=== PATIENT | female | born 1985 ===

== ENCOUNTER 2016-10-26 16:41 | Outpatient (CLI) | payer OTHER ==
[~2016-10-26] VITALS: Ht 165.1 cm; Wt 96.0 kg
[2016-10-26 19:10] VITALS: Ht 165.1 cm; Wt 96.0 kg
== END 2016-10-26 19:20 | disposition home or self-care (01) ==
LOC: C.LD 16:41 → C.OPB 16:41
PROVIDERS: ATTEND Obstetrics & Gynecology
DX: O26.893 Other specified pregnancy related conditions, third trimester (principal); Z3A.39 39 weeks gestation of pregnancy

== ENCOUNTER 2021-02-13 07:14 | Inpatient (IN) ==
[2021-02-13] MEDS ORDERED: SODIUM CHLORIDE 0.9% 250 ML IV PRN (09:20)
[2021-02-13] MEDS ORDERED: DEXTROSE 50% 50 ML SYRINGE IV PRN ×2 (10:30→10:38)
[2021-02-13] MEDS ORDERED: OXYTOCIN 30 UNITS/500 ML BAG IV PRN ×2 (10:30→19:31)
[2021-02-13] MEDS ORDERED: INSULIN REGULAR 250 UNITS in SODIUM CHLORIDE 0.9% 247.5 ML IV PRN ×2 (10:30→10:38)
[2021-02-13] MEDS ORDERED: SODIUM CHLORIDE 0.9% 1000ML 1,000 ML IV PRN ×2 (10:30→10:38)
[2021-02-13] MEDS ORDERED: DEXTROSE 5% 1,000 ML IV PRN ×2 (10:30→10:38)
[2021-02-13] MEDS ORDERED: PENICILLIN G POTASSIUM 6 MU in DEXTROSE 5% 250 ML IV STA (10:30)
[2021-02-13 10:56] LABS: Hematocrit (blood only) 30.5 % (37-47); Hemoglobin 9.5 g/dL (12.0-16.0); Mean Corpuscular Hemoglobin 25.5 pg (25-34); Mean Corpuscular Hgb Conc 31.1 g/dL (32-36); Mean Corpuscular Volume 81.8 fL (80-100); Mean Platelet Volume 8.3 fL (7.4-10.4); Platelet Count 198 K/uL (130-400); RDW Coefficient of Variation 16.8 % (11.5-14.5); RDW Standard Deviation 49.4 fL (36.4-46.3); Red Blood Count 3.73 M/uL (4.2-5.4); White Blood Count 6.67 K/uL (4.8-10.8)
[2021-02-13] MEDS: miSOPROStoL 50 MCG TAB PO SCH ×2 (13:26→17:54)
--- NOTE | 2021-02-13 13:44 | History & Physical Report ---
Date of Service February 13, 2021 Assessment & Plan (1) Hypothyroid: (2) Hepatitis C: (3) Gestational diabetes: Plan: Patient is a 35-year-old -2-1-6 at 39 weeks of gestation with gestational diabetes, on insulin, scheduled for induction of labor at term, Vital signs stable afebrile, heart rate reassuring, GBS positive, History of genital herpes, on Valtrex and no lesions and desires to trial of vaginal and declined , Cervix unfavorable, Plan to admit, feed before induction, cervical ripening with oral Cytotec and penicillin. Fingersticks and insulin management during active labor, Continue to monitor closely (4) Genital herpes: (5) Asthma: (6) Anxiety: (7) Spon w/ hemorr-complete: (8) No significant past surgical history: (9) Intrahepatic cholestasis of : Admission and Anticipated Discharge Date Admission Date: February 13, 2021 History of Present Illness Primary Care Provider: Huseyin Terrazas MD Patient is a 35-year-old -2-1-6 at 39 weeks of gestation who was scheduled for induction of labor for gestational diabetes and on insulin. Patient has no complaints. She denies contractions, leakage of fluid, vaginal bleeding, fever chills, headaches, change in her vision nor abdominal pain. She reports good movements. Her has been complicated by, 1) gestational diabetes on insulin, fingersticks have been elevated and insulin dose has been increased to 90 U/ day 2) class III obesity, 3) hypothyroidism, on levothyroxine, 4. History of HSV infection, on Valtrex since 36 weeks. Per patient she had an outbreak about 2 months ago. Self diagnosed by small blisters. She used higher dose of Valtrex at that time but has not have an exam nor culture to confirm. She denies any symptoms now, denies itching, burning, lesions no blisters. Her speculum exam is normal, negative. I discussed the possibility of shedding virus even with no lesions and possible transfer to infant and risk of infection/viremia. We discussed option of vaginal delivery versus section and risks and benefits of each. After long discussion patient decided to try vaginal . 5. Anxiety during , she was on medical marijuana and advised to stop during early and she stopped. 6. 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 7. History of delivery in 2019 and induced at 36 weeks in 2018 for ICP. 8. Mild asthma, 9. Rh-, 10. History of cholestasis during in 2018, 11. Family history of chromosomal abnormality, daughter with 13 q. deletion and agenesis of corpus callosum, 12. Antepartum anemia, hemoglobin was 8.7 at new OB visit and started on iron with vitamin C. 12. GBS+ Allergies Allergy/AdvReac Type Severity Reaction Status Date / Time banana Allergy Intermediate GI SYMPTOMS Verified 01/25/20 14:41 Home Medications Medication Instructions Recorded Confirmed Type albuterol sulfate 90 mcg/actuation 2 puff INHALATION Q6H PRN 09/25/19 02/13/21 History aerosol inhaler levothyroxine 50 mcg tablet 125 mcg PO QAM 09/25/19 02/13/21 History Medical Marijuana 10 mg PO QAM 01/25/20 02/13/21 History ferrous sulfate 325 mg (65 mg 325 mg PO BID #60 tab 01/25/20 02/13/21 Rx iron) tablet insulin glargine 100 unit/mL (3 90 unit SUBCUT PM 02/13/21 02/13/21 History mL) subcutaneous pen (Lantus Solostar U-100 Insulin) vits no.124-ferrous fum 1 tab PO DAILY 02/13/21 02/13/21 History 27 mg iron-folic acid 800 mcg tablet ( Vitamin) valacyclovir 500 mg tablet 500 mg PO BID 02/13/21 02/13/21 History (Valtrex) Patient History Medical History (Updated 02/13/21 @ 13:42 by Teodora Colbert MD) Anxiety Medical marijuana card - Smokes in wax form - Hasn't used in about 3 weeks. Asthma Albuterol Foot fracture, left Genital herpes Last outbreak 1 month ago - Valtrex since 36 weeks. 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 Hypothyroid Synthroid 125mcg daily Intrahepatic cholestasis of last - Induced at 36 weeks Surgical History No significant past surgical history S/P foot surgery, right As a teenager Family History Other No known health problems Social History Smoking Status: Former smoker Tobacco Type: Cigarettes Hx Alcohol Use: No Hx Substance Use: Yes Prescribed Medications: Marijuana Prescribed Medications Comment: Medical marijuana Last Used Substance Other:: 1 month ago - Smoked form Preferred Language: Sudanese Communication Ability: Effective Special Education Director Required: No Beliefs That Will Affect Care: None marital status: marital status details: Chepe Ortiz Current Living Situation: Spouse Current Living Situation Comment: Lives with and two children. 4 children live with patient's mom current occupational status: employed current occupation: Homemaker Other Information That Helps Us Care for You: No Feels Safe at Home: Yes Safety Concerns: Feels Safe At This Time Childhood Exposure to Second-Hand Smoke: Yes Assistive Devices: None OB History 4 term spontaneous vaginal deliveries and two deliveries at 36 weeks, see office records for details Review of Systems as per Subjective / HPI Physical Exam Constitutional: WD/WN, vitals as above Gastrointestinal (Abdomen): normal bowel sounds, soft, nontender, no hepatosplenomegaly Genitourinary: normal external appearance (No signs or symptoms of) Speculum/Bimanual Exam: normal appearance of the vagina and normal appearance of the cervix (No signs or symptoms of herpes) OB Exam Abdomen: + vertex Manual OB Exam: + cervical dilation 1 cm, + cervical effacement 20% and + station high OB Exam Monitor Tracing: + external uterine monitor used and + category I Results & Data ([place]) Vital Signs (Past 12 Hours) Vital Signs Temp Pulse Resp BP 02/13/21 11:54 36.8 C 98 H 20 102/58 L 02/13/21 07:37 36.7 C 20 02/13/21 07:25 96 H 115/71 Laboratory Results Lab Results 02/13/21 02/13/21 02/13/21 Range/Units 08:29 09:36 09:39 WBC 6.67 (4.8-10.8) K/uL RBC 3.73 L (4.2-5.4) M/uL Hgb 9.5 L (12.0-16.0) g/dL Hct 30.5 L (37-47) % MCV 81.8 (80-100) fL MCH 25.5 (25-34) pg MCHC 31.1 L (32-36) g/dL RDW Std Deviation 49.4 H (36.4-46.3) fL RDW Coeff of Marcin 16.8 H (11.5-14.5) % Plt Count 198 (130-400) K/uL MPV 8.3 (7.4-10.4) fL POC Glucose 90 (70-99) mg/dl Blood Type A Negative Antibody Screen NEGATIVE Crossmatch See Detail Covid testing was done in office on February 09 and it was negative, GBS is positive (1) Gestational diabetes Gestational diabetes mellitus control: insulin-controlled Trimester: third trimester Qualified Code(s): O24.414 - Gestational diabetes mellitus in , insulin controlled
[2021-02-13] MEDS: LACTATED RINGER'S 1,000 ML IV PRN ×3 (14:05→19:53)
--- NOTE | 2021-02-13 15:02 | Obstetrical Progress Note ---
Date of Service February 13, 2021 Assessment & Plan Admission and Anticipated Discharge Date Admission Date: February 13, 2021 Subjective Patient is reevaluated. She ate lunch and then first dose of Cytotec was given at 1320 p.m. She started to have contractions about 20 minutes later. There were mild and now they are getting more painful. She rates the pain 6 out of 10. She denies pain medication or epidural. heart rate category 1, contractions every 2 to 3 minutes. First dose of penicillin is being given now. Continue to monitor closely. Results & Data ([facility]) Vital Signs (Past 12 Hours) Vital Signs Temp Pulse Resp BP 02/13/21 14:25 36.6 C 86 18 112/65 02/13/21 11:54 36.8 C 98 H 20 102/58 L 02/13/21 07:37 36.7 C 20 02/13/21 07:25 96 H 115/71
--- NOTE | 2021-02-13 17:19 | Obstetrical Progress Note ---
Date of Service February 13, 2021 Assessment & Plan Admission and Anticipated Discharge Date Admission Date: February 13, 2021 Subjective Patient is reevaluated. It has been 4 hours since she had Cytotec. Still having regular contractions but less painful than before. Cervix is 3 cm dilated, 50% effaced and head at -2 station. heart rate category 1, toco contractions every 1 to 3 minutes. Continue to monitor closely and plan to AROM after second dose of penicillin. Results & Data ([facility]) Vital Signs (Past 12 Hours) Vital Signs Temp Pulse Resp BP 02/13/21 14:25 36.6 C 86 18 112/65 02/13/21 11:54 36.8 C 98 H 20 102/58 L 02/13/21 07:37 36.7 C 20 02/13/21 07:25 96 H 115/71
[2021-02-13] MEDS: PENICILLIN G POTASSIUM 3 MU in DEXTROSE 5% 100 ML IV PRN ×2 (17:53→21:59)
--- NOTE | 2021-02-13 18:29 | Obstetrical Progress Note ---
Date of Service February 13, 2021 Assessment & Plan Admission and Anticipated Discharge Date Admission Date: February 13, 2021 Subjective Patient is reevaluated 2nd PCN is being infused. VE; 3-4 cm/ 50%/ -2, AROM, clear fluid FHR categ I [place] ctxs q 2-4 min Continue to monitor closely Results & Data ([facility]) Vital Signs (Past 12 Hours) Vital Signs Temp Pulse Resp BP 02/13/21 14:25 36.6 C 86 18 112/65 02/13/21 11:54 36.8 C 98 H 20 102/58 L 02/13/21 07:37 36.7 C 20 02/13/21 07:25 96 H 115/71
[2021-02-13] MEDS ORDERED: fentaNYL citrate 100 MCG/2 ML VIAL ONE ×2 (18:44→23:13)
[2021-02-13] MEDS ORDERED: SODIUM CHLORIDE 0.9% INJ 10 ML VIAL ONE ×2 (18:44→23:12)
[2021-02-13] MEDS ORDERED: BUPIVACAINE 0.25% 30 ML VIAL ONE ×3 (18:44→23:13)
[2021-02-13] MEDS ORDERED: ePHEDrine sulfate 50 MG/ML AMP ONE (18:44)
[2021-02-13] MEDS ORDERED: fentaNYL 2MCG/ML ROPIVACAINE 1.25MG/ML 100 ML BAG EPI ONE (18:45)
[2021-02-13] MEDS ORDERED: NALBUPHINE HCL INJ 10 MG/ML AMP IV PRN (19:00)
[2021-02-13] MEDS ORDERED: ONDANSETRON INJ 2 MG/ML 2 ML VIAL IV PRN (19:00)
[2021-02-13] MEDS ORDERED: ePHEDrine sulfate 50 MG/ML AMP IV PRN (19:00)
[2021-02-13] MEDS ORDERED: diphenhydrAMINE 50 MG/ML VIAL IV PRN (19:00)
[2021-02-13] MEDS ORDERED: fentaNYL 2MCG/ML ROPIVACAINE 1.25MG/ML 100 ML BAG EPI PRN (19:00)
[2021-02-13] MEDS ORDERED: NALOXONE HCL 1 MG in SODIUM CHLORIDE 0.9% 1000ML 1,000 ML IV PRN (19:00)
[2021-02-13] MEDS ORDERED: NALOXONE HCL 0.4 MG/1 ML VIAL/CARP IV PRN (19:00)
--- NOTE | 2021-02-13 19:02 | Anesthesiology Consultation ---
Date of Service February 13, 2021 Assessment & Plan (1) Encounter for pre-operative examination: Chart Review Chart Review: Patient NOT seen in Pre Admission Testing and Acceptable Risk for Labor Epidural Consults Requested none History Height/Weight Height: 5 ft 4 in Weight: 117.027 kg Allergies Allergy/AdvReac Type Severity Reaction Status Date / Time banana Allergy Intermediate GI SYMPTOMS Verified 01/25/20 14:41 Medications Home Medications Medication Instructions Recorded Confirmed Last Taken albuterol sulfate 90 mcg/actuation 2 puff INHALATION Q6H PRN 09/25/19 02/13/21 Unknown aerosol inhaler levothyroxine 50 mcg tablet 125 mcg PO QAM 09/25/19 02/13/21 02/13/21 Medical Marijuana 10 mg PO QAM 01/25/20 02/13/21 01/14/21 ferrous sulfate 325 mg (65 mg 325 mg PO BID #60 tab 01/25/20 02/13/21 02/12/21 iron) tablet insulin glargine 100 unit/mL (3 90 unit SUBCUT PM 02/13/21 02/13/21 02/12/21 mL) subcutaneous pen (Lantus Solostar U-100 Insulin) vits no.124-ferrous fum 1 tab PO DAILY 02/13/21 02/13/21 02/12/21 27 mg iron-folic acid 800 mcg tablet ( Vitamin) valacyclovir 500 mg tablet 500 mg PO BID 02/13/21 02/13/21 02/13/21 (Valtrex) Active Medications Generic Name Dose Route Start Last Admin Trade Name Freq PRN Reason Stop Dose Admin Lactated Ringer's 1,000 mls @ 150 mls/hr 02/13/21 10:30 02/13/21 18:34 Lr IV 02/15/21 10:29 999 mls/hr .Q6H40M PRN Infusion L&D Protocol Protocol Penicillin G Potassium 3 mu/ 106 mls @ 100 mls/hr 02/13/21 13:31 02/13/21 17:53 Dextrose IV 02/23/21 13:30 100 mls/hr Q4H PRN Administration GBS(+) Until Delivery Misoprostol 50 mcg 02/13/21 12:00 02/13/21 17:54 Misoprostol 50 Mcg Tab PO 03/15/21 11:59 Not Given Q4 GRACE Past Medical History Medical History (Updated 02/13/21 @ 19:02 by Hector Liz MD) Anemia Anxiety Medical marijuana card - Smokes in wax form - Hasn't used in about 3 weeks. Asthma Albuterol Encounter for pre-operative examination Foot fracture, left Genital herpes Last outbreak 1 month ago - Valtrex since 36 weeks. 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 Hypothyroid Synthroid 125mcg daily Intrahepatic cholestasis of last - Induced at 36 weeks Exercise / Class Metabolic Activity II 4-5 Yardwork/Stairs/Walk up hill Past Family History Family History Other No known health problems Past Surgical History Surgical History No significant past surgical history S/P foot surgery, right As a teenager Past Anesthesia History No Hx of Anesthesia Complications and No Family Hx of Anesthesia Complications History of PONV No Hx of PONV and No Hx of Motion Sickness Social History Smoking Status: Former smoker Hx Alcohol Use: No Hx Substance Use: Yes substance use type: marijuana Last Used Substance Other:: 1 month ago - Smoked form Physical Exam Vital Signs Last Vital Signs Temp 36.6 C 02/13/21 14:25 Pulse 94 H 02/13/21 19:23 Resp 18 02/13/21 14:25 BP 110/71 02/13/21 19:23 Pulse Ox 95 02/13/21 19:22 Testing Laboratory Results 02/13/21 09:39 Blood Type A Negative 02/13/21 09:36 Antibody Screen NEGATIVE 02/13/21 09:36 02/13/21 02/13/21 02/13/21 17:58 16:12 14:11 POC Glucose 81 85 85 02/13/21 08:29 POC Glucose 90
[2021-02-13] MEDS ORDERED: MINERAL OIL 30 ML UDC ONE (19:45)
--- NOTE | 2021-02-13 21:10 | Obstetrical Progress Note ---
Date of Service February 13, 2021 Assessment & Plan Admission and Anticipated Discharge Date Admission Date: February 13, 2021 Subjective Patient is reevaluated, comfortable VE; unchanged since AROM FHR categ I [place] unable to monitor ctxs due to her being on charu side Plan to start Oxytocin per protocol and continue to monitor closely Results & Data ([facility]) Vital Signs (Past 12 Hours) Vital Signs Temp Pulse Resp BP Pulse Ox 02/13/21 21:07 82 98 02/13/21 21:02 75 94 02/13/21 21:01 81 94 02/13/21 21:00 88 97/53 L 02/13/21 20:57 77 92 02/13/21 20:52 78 94 02/13/21 20:47 73 94 02/13/21 20:46 79 94 02/13/21 20:45 73 96/55 L 02/13/21 20:42 78 93 02/13/21 20:41 87 92 02/13/21 20:37 74 93 02/13/21 20:35 80 94 02/13/21 20:32 77 93 02/13/21 20:30 80 20 93/55 L 02/13/21 20:27 83 95 02/13/21 20:22 81 94 02/13/21 20:17 79 93 02/13/21 20:15 91 H 90/55 L 94 02/13/21 20:12 86 96 02/13/21 20:10 81 91/53 L 94 02/13/21 20:07 89 97 02/13/21 20:05 76 90/52 L 02/13/21 20:02 83 97 02/13/21 20:00 85 18 88/54 L 02/13/21 19:57 74 96 02/13/21 19:55 81 84/53 L 02/13/21 19:52 69 97 02/13/21 19:50 78 80/49 L 02/13/21 19:48 74 90/54 L 02/13/21 19:47 72 96 02/13/21 19:46 76 85/50 L 02/13/21 19:45 20 02/13/21 19:42 71 88/50 L 96 02/13/21 19:40 18 02/13/21 19:37 91 H 96 02/13/21 19:36 79 94 02/13/21 19:35 78 18 101/57 L 02/13/21 19:33 75 104/60 02/13/21 19:32 75 96 02/13/21 19:31 82 107/64 02/13/21 19:30 18 02/13/21 19:29 79 107/65 02/13/21 19:27 83 109/67 97 02/13/21 19:25 80 18 108/68 02/13/21 19:23 94 H 110/71 02/13/21 19:22 84 18 95 02/13/21 19:21 86 111/65 02/13/21 19:20 18 02/13/21 19:17 82 96 02/13/21 19:12 78 97 02/13/21 19:08 36.8 C 02/13/21 19:06 85 119/76 02/13/21 14:25 36.6 C 86 18 112/65 02/13/21 11:54 36.8 C 98 H 20 102/58 L
--- NOTE | 2021-02-13 23:13 | Communication Note ---
Date of Service: February 13, 2021 patient with increasing pain, front midline abdomen. bolused 5ml 0.25% bupivicaine followed by 5ml 2% lidocaine in divided doses. minimal improvement. vss. pt on monitor
--- NOTE | 2021-02-13 23:46 | Communication Note ---
Date of Service: February 13, 2021 Called by RN for increasing pain. Epidural had been placed and had been redosed earlier. She is willing to replace the epidural catheter. I did remove the previous catheter, tip in tact. Area prepped with betadine. Epidural placed one interspinous level higher, Loss of resistance @6cm, catheter secured at 10cm. Negative aspiration, negative test dose. Catheter bolused with 12cc of 0.125% bupivicane, PCEA pump restarted at previous settings. Patient had good pain relief. I reported this to the condominium property manager anesthesiologist.
--- NOTE | 2021-02-13 23:48 | Obstetrical Progress Note ---
Date of Service February 13, 2021 Assessment & Plan Admission and Anticipated Discharge Date Admission Date: February 13, 2021 Subjective Patient became uncomfortable and received second epidural. Vital signs stable afebrile, heart rate category 1, [place] is showing contractions every 2 to 3 minutes, Pitocin is at 8 milliunits/min, Cervix is 4-5 cm dilated 70% effaced head at -2 station and cone-shaped. We will continue to monitor closely Results & Data ([facility]) Vital Signs (Past 12 Hours) Vital Signs Temp Pulse Resp BP Pulse Ox 02/13/21 23:44 71 109/61 02/13/21 23:42 79 110/65 99 02/13/21 23:40 79 20 109/63 02/13/21 23:38 116 H 132/62 91 02/13/21 23:37 105 H 100 02/13/21 23:32 123 H 97 02/13/21 23:30 22 02/13/21 23:27 74 96 02/13/21 23:23 81 131/73 02/13/21 23:22 89 96 02/13/21 23:17 80 99 02/13/21 23:12 80 97 02/13/21 23:07 71 120/66 99 02/13/21 23:05 79 123/71 02/13/21 23:03 87 123/68 02/13/21 23:02 86 99 02/13/21 23:01 68 117/75 02/13/21 23:00 18 02/13/21 22:59 70 115/71 02/13/21 22:57 86 115/72 97 02/13/21 22:55 73 112/69 02/13/21 22:53 77 124/72 02/13/21 22:52 72 99 02/13/21 22:51 83 122/64 02/13/21 22:50 80 90 02/13/21 22:49 68 114/65 02/13/21 22:47 79 115/66 97 02/13/21 22:45 67 115/69 02/13/21 22:43 67 124/76 02/13/21 22:42 71 99 02/13/21 22:41 70 122/71 02/13/21 22:39 71 123/70 02/13/21 22:37 78 110/66 100 02/13/21 22:35 61 108/67 02/13/21 22:33 76 118/74 02/13/21 22:32 71 100 02/13/21 22:31 77 116/70 02/13/21 22:30 20 02/13/21 22:29 71 112/66 02/13/21 22:27 74 113/67 100 02/13/21 22:25 67 112/64 02/13/21 22:23 73 106/65 02/13/21 22:22 73 100 02/13/21 22:17 72 100 02/13/21 22:15 81 114/68 02/13/21 22:12 72 100 02/13/21 22:07 76 99 02/13/21 22:02 76 100 02/13/21 22:01 18 02/13/21 22:00 70 110/68 02/13/21 21:57 85 100 02/13/21 21:52 73 98 02/13/21 21:47 75 100 02/13/21 21:45 83 111/65 02/13/21 21:42 75 99 02/13/21 21:37 76 100 02/13/21 21:32 76 99 02/13/21 21:30 73 18 107/63 02/13/21 21:27 72 97 02/13/21 21:22 75 97 02/13/21 21:17 74 98 02/13/21 21:16 82 109/65 02/13/21 21:12 83 97 02/13/21 21:07 82 98 02/13/21 21:02 36.6 C 75 94 02/13/21 21:01 81 94 02/13/21 21:00 88 97/53 L 02/13/21 20:59 18 02/13/21 20:57 77 92 21 20:52 78 94 21 20:47 73 94 21 20:46 79 94 21 20:45 73 96/55 L 02/13/21 20:42 78 93 21 20:41 87 92 02/13/21 20:37 74 93 02/13/21 20:35 80 94 21 20:32 77 93 21 20:30 80 20 93/55 L 02/13/21 20:27 83 95 12/21/21 20:22 81 94 02/13/21 20:17 79 93 02/13/21 20:15 91 H 90/55 L 94 02/13/21 20:12 86 96 02/13/21 20:10 81 91/53 L 94 02/13/21 20:07 89 97 02/13/21 20:05 76 90/52 L 02/13/21 20:02 83 97 02/13/21 20:00 85 18 88/54 L 02/13/21 19:57 74 96 02/13/21 19:55 81 84/53 L 02/13/21 19:52 69 97 02/13/21 19:50 78 80/49 L 02/13/21 19:48 74 90/54 L 02/13/21 19:47 72 96 02/13/21 19:46 76 85/50 L 02/13/21 19:45 20 02/13/21 19:42 71 88/50 L 96 02/13/21 19:40 18 02/13/21 19:37 91 H 96 02/13/21 19:36 79 94 02/13/21 19:35 78 18 101/57 L 02/13/21 19:33 75 104/60 02/13/21 19:32 75 96 02/13/21 19:31 82 107/64 02/13/21 19:30 18 02/13/21 19:29 79 107/65 02/13/21 19:27 83 109/67 97 02/13/21 19:25 80 18 108/68 02/13/21 19:23 94 H 110/71 02/13/21 19:22 84 18 95 02/13/21 19:21 86 111/65 02/13/21 19:20 18 02/13/21 19:17 82 96 02/13/21 19:12 78 97 02/13/21 19:08 36.8 C 02/13/21 19:06 85 119/76 02/13/21 14:25 36.6 C 86 18 112/65 02/13/21 11:54 36.8 C 98 H 20 102/58 L
[2021-02-14] MEDS ORDERED: MEASLES, MUMPS & RUBELLA VIRUS VIAL SQ ONE (00:57)
[2021-02-14] MEDS ORDERED: OXYTOCIN 30 UNITS/500 ML BAG IV PRN (00:57)
[2021-02-14] MEDS ORDERED: BENZOCAINE 20% AER SPR 82.5 GM CAN EXT PRN (00:57)
[2021-02-14] MEDS ORDERED: DIPHTHERIA/TETANUS/PERTUSSIS 0.5 ML SYR/VIAL IM ONE (00:57)
[2021-02-14] MEDS ORDERED: HYDROCORTISONE ACETATE 25 MG SUPP PR PRN (00:57)
[2021-02-14] MEDS ORDERED: SUPERCREAM 0.870% 15 GM JAR EXT PRN (00:57)
[2021-02-14] MEDS ORDERED: bisacodyL 10 MG SUPP PR PRN (00:57)
[2021-02-14] MEDS ORDERED: ACETAMINOPHEN 325 MG TAB PO PRN (00:57)
--- NOTE | 2021-02-14 01:02 | Delivery Summary ---
Vaginal Delivery Summary Date of Service February 14, 2021 Vaginal Delivery Summary Patient was found to be fully dilated and desire to push. The head was visible at the genital hiatus. With 1 push the head was delivered without difficulty there was a nuchal cord around the neck x1 which was reduced I was unable to deliver the shoulders with minimal traction. Patient legs were hyperflexed and then suprapubic pressure was applied and then I was able to deliver posterior/right arm without difficulty and then anterior/ left shoulder and arm was delivered with minimal traction and then the baby was handed off to the mother. The mouth and nose were suctioned and the cord was clamped x2 and cut. Baby was handed to the waiting pediatric team. The cord blood was obtained. The perineum and labia were checked for lacerations and they were intact. The placenta was found to be in the vagina, delivered spontaneously as intact and complete. Uterus was explored and found to be empty. Fundus was firm and EBL was 100 mL. Mom and baby tolerated procedure well. The sponge needle instrument counts was correct x2. Baby was a viable male infant Apgars 8/9 and weight is pending. No complications happened other than mild shoulder dystocia and I was present during whole procedure.
[2021-02-14] MEDS ORDERED: ALBUTEROL HFA 8 GM INHALER INH PRN (01:05)
[2021-02-14] MEDS ORDERED: IBUPROFEN 600 MG TAB PO ONE (02:45)
[2021-02-14] MEDS: LEVOTHYROXINE SODIUM 125 MCG TABLET PO SCH (06:39)
[2021-02-14] MEDS: PRENATAL VITAMIN 1 TAB PO SCH (07:40)
[2021-02-14] MEDS: DOCUSATE SODIUM 100 MG CAP PO SCH ×2 (07:40→21:28)
[2021-02-14] MEDS: IBUPROFEN 600 MG TAB PO PRN ×3 (07:40→21:28)
[2021-02-14] MEDS ORDERED: FERROUS SULFATE 325 MG TAB PO SCH (08:00)
[2021-02-14] MEDS ORDERED: PRENATAL VITAMIN 1 TAB PO SCH (09:00)
[2021-02-14] MEDS: FERROUS SULFATE 325 MG TAB PO SCH ×2 (09:42→23:40)
--- NOTE | 2021-02-14 09:56 | Anesthesia Procedure Note ---
Date of Service February 14, 2021 Anesthesia Post Epidural Note Vital Signs Vital Signs: Temp Pulse Resp BP Pulse Ox 36.6 C 89 16 119/80 98 02/14/21 07:30 02/14/21 07:30 02/14/21 07:30 02/14/21 07:30 02/14/21 07:30 Pain Intensity Bilateral Abdomen: Pain Intensity: 1 Perineal: Pain Intensity: 1 Notes Mental Status: alert / awake / arousable and participated in evaluation Nausea / Vomiting: adequately controlled Pain: adequately controlled Airway Patency, RR, SpO2: stable & adequate BP & HR: stable & adequate Hydration State: stable & adequate Neuraxial Anesthesia: was administered and sensory block is resolving Anesthetic Complications: no major complications apparent Epidural: Removed without complications and With tip intact
[2021-02-15] MEDS: IBUPROFEN 600 MG TAB PO PRN (03:07)
[2021-02-15] MEDS: LEVOTHYROXINE SODIUM 125 MCG TABLET PO SCH (06:16)
[2021-02-15] MEDS: PRENATAL VITAMIN 1 TAB PO SCH (07:35)
[2021-02-15] MEDS: FERROUS SULFATE 325 MG TAB PO SCH (07:35)
[2021-02-15] MEDS: DOCUSATE SODIUM 100 MG CAP PO SCH (07:35)
--- NOTE | 2021-02-15 07:44 | Obstetrical Progress Note ---
Date of Service February 15, 2021 Assessment & Plan Admission and Anticipated Discharge Date Admission Date: February 13, 2021 Subjective Patient is seen and examined. She feels well, no complaints. Ambulating without dizziness Voiding without difficulty Tolerating regular diet with out N&V Bleeding is minimal No fever/ chills/ CP/ SOB/ N&V/ Leg pain Bottle feeding without problems Vital Signs Temp Pulse Pulse Resp BP BP Pulse Ox 02/14/21 23:15 36.7 C 76 16 125/80 96 02/14/21 19:45 36.8 C 85 16 115/77 94 02/14/21 16:20 36.7 C 80 16 132/84 96 02/14/21 11:30 36.9 C 80 16 123/77 97 02/14/21 11:19 36.9 C 80 16 123/77 97 02/14/21 11:10 37 C 83 16 104/68 97 Lab Results 02/13/21 02/13/21 02/13/21 Range/Units 08:29 09:36 09:39 WBC 6.67 (4.8-10.8) K/uL RBC 3.73 L (4.2-5.4) M/uL Hgb 9.5 L (12.0-16.0) g/dL Hct 30.5 L (37-47) % MCV 81.8 (80-100) fL MCH 25.5 (25-34) pg MCHC 31.1 L (32-36) g/dL RDW Std Deviation 49.4 H (36.4-46.3) fL RDW Coeff of Marcin 16.8 H (11.5-14.5) % Plt Count 198 (130-400) K/uL MPV 8.3 (7.4-10.4) fL POC Glucose 90 (70-99) mg/dl Blood Type A Negative Antibody Screen NEGATIVE Screen (Negative) Crossmatch See Detail 02/13/21 02/13/21 02/13/21 Range/Units 14:11 16:12 17:58 WBC (4.8-10.8) K/uL RBC (4.2-5.4) M/uL Hgb (12.0-16.0) g/dL Hct (37-47) % MCV (80-100) fL MCH (25-34) pg MCHC (32-36) g/dL RDW Std Deviation (36.4-46.3) fL RDW Coeff of Marcin (11.5-14.5) % Plt Count (130-400) K/uL MPV (7.4-10.4) fL POC Glucose 85 85 81 (70-99) mg/dl Blood Type Antibody Screen Screen (Negative) Crossmatch 02/13/21 02/13/21 02/13/21 Range/Units 19:55 22:03 23:56 WBC (4.8-10.8) K/uL RBC (4.2-5.4) M/uL Hgb (12.0-16.0) g/dL Hct (37-47) % MCV (80-100) fL MCH (25-34) pg MCHC (32-36) g/dL RDW Std Deviation (36.4-46.3) fL RDW Coeff of Marcin (11.5-14.5) % Plt Count (130-400) K/uL MPV (7.4-10.4) fL POC Glucose 85 71 89 (70-99) mg/dl Blood Type Antibody Screen Screen (Negative) Crossmatch 02/14/21 Range/Units 06:32 WBC (4.8-10.8) K/uL RBC (4.2-5.4) M/uL Hgb (12.0-16.0) g/dL Hct (37-47) % MCV (80-100) fL MCH (25-34) pg MCHC (32-36) g/dL RDW Std Deviation (36.4-46.3) fL RDW Coeff of Marcin (11.5-14.5) % Plt Count (130-400) K/uL MPV (7.4-10.4) fL POC Glucose (70-99) mg/dl Blood Type A Negative Antibody Screen Cancelled Screen Negative (Negative) Crossmatch PE: General: Alert, orientedx3, NAD Abd: soft, NT, fundus firm, below Umbilicus Perineum intact, Lochia rubra minimal Ext; NT, no edema AP: 35 yo s/p , ppd# 1 VSS Afebrile doing well Continue routine care Desires d/c today All questions were answered Discussed when to call D/C home , f.u in office f/u OGT for GDM Results & Data ([facility]) Vital Signs (Past 12 Hours) Vital Signs Temp Pulse Resp BP Pulse Ox 02/14/21 23:15 36.7 C 76 16 125/80 96 02/14/21 19:45 36.8 C 85 16 115/77 94
[2021-02-15 07:51] LABS: Hematocrit (blood only) 27.4 % (37-47); Hemoglobin 8.4 g/dL (12.0-16.0); Mean Corpuscular Hemoglobin 25.5 pg (25-34); Mean Corpuscular Hgb Conc 30.7 g/dL (32-36); Mean Corpuscular Volume 83.3 fL (80-100); Mean Platelet Volume 8.3 fL (7.4-10.4); Platelet Count 151 K/uL (130-400); RDW Coefficient of Variation 16.8 % (11.5-14.5); RDW Standard Deviation 51.3 fL (36.4-46.3); Red Blood Count 3.29 M/uL (4.2-5.4); White Blood Count 6.49 K/uL (4.8-10.8)
[2021-02-15] MEDS ORDERED: bisacodyL 5 MG TABEC PO SCH (20:00)
== END 2021-02-15 10:10 | disposition home or self-care (01) | DRG 806 ==
LOC: 4S1 07:14 → 4S2 02-14 03:19